=== PATIENT | female | born 1975 | race Caucasian/White ===

== ENCOUNTER 2016-02-15 01:48 | Emergency (ER) | payer SELFPAY ==
[2016-02-15] MEDS ORDERED: CEFTRIAXONE 1 GM VIAL ONE (05:35)
== END 2016-02-15 06:13 | disposition home or self-care (01) ==
LOC: ER 01:48
DX: J01.00 Acute maxillary sinusitis, unspecified (principal)
CPT/HCPCS: 36415; 80053; 81003; 83690; 84703; 85025; 87804; 87880; 96372